=== PATIENT | female | born 1950 | race Caucasian/White ===

== ENCOUNTER 2022-03-01 05:38 | Day surgery (SDC) | payer MEDICARE, OTHER ==
[2022-02-25 15:08] LABS: BASOPHILS # (AUTO) 0.1 X10'3 (0-0.2); EOSINOPHILS # (AUTO) 0.1 X10'3 (0-0.9); EOSINOPHILS % (AUTO) 1.7 % (0-6); LYMPHOCYTES # (AUTO) 2.6 X10'3 (1.1-4.8); LYMPHOCYTES % (AUTO) 37.8 % (21-51); MEAN CORPUSCULAR HEMOGLOBIN 31.2 PG (27.0-31.0); MEAN CORPUSCULAR HGB CONC 34.2 g/dL (33.0-36.5); MEAN CORPUSCULAR VOLUME 91.2 FL (78-98); MEAN PLATELET VOLUME 7.9 FL (7.4-10.4); MONOCYTES # (AUTO) 0.6 X10'3 (0-0.9); MONOCYTES % (AUTO) 8.7 % (2-12); NEUTROPHILS # (AUTO) 3.5 X10'3 (1.8-7.7); NEUTROPHILS % (AUTO) 50.8 % (42-75); PRE OP HEMATOCRIT 33.8 % (35.0-45.0); PRE OP HEMOGLOBIN 11.6 g/dL (12.0-16.0); PRE OP PLATELET COUNT 258 X10'3 (140-440); RED BLOOD COUNT 3.71 X10'6 (4.20-5.60)
[2022-02-25 15:23] LABS: ALBUMIN 4.2 G/DL (3.4-5.0); ALBUMIN/GLOBULIN RATIO 1.2 (1.1-1.5); ALKALINE PHOSPHATASE 73 IU/L (46-116); BLOOD UREA NITROGEN 13 MG/DL (7-18); BUN/CREATININE RATIO 14.9 (6.6-38.0); CALCIUM 9.1 MG/DL (8.5-10.1); CHLORIDE 100 MMOL/L (99-107); CREATININE 0.87 MG/DL (0.40-0.90); PRE OP ALT 27 U/L (30-65); PRE OP ANION GAP 12 (8-16); PRE OP AST 32 U/L (10-37); PRE OP BILIRUB, TOTAL 0.3 MG/DL (0.0-1.0); PRE OP GLUCOSE 112 MG/DL (70-104); PRE OP POTASSIUM 4.2 MMOL/L (3.4-5.1); PRE OP SODIUM 138 MMOL/L (135-145); TOTAL CARBON DIOXIDE 26.4 MMOL/L (24-32); TOTAL PROTEIN 7.8 G/DL (6.4-8.2); eGFR 64 ML/MIN
[~2022-03-01] VITALS: Ht 160 cm; Wt 76.3 kg
[~2022-03-01 05:38] MED LIST: ASPI-611 PO; ATOR10TA10 PO; CALC-855 PO; CITA40TA22 PO; METF-436 PO; TRAZ-251 PO; VIT1CAPS46 PO; clindamycin 600mg/D5W 50ml 50 ML IV ONE; famotidine 20mg tablet PO ONE; ringers solution, lacted 1,000 ML IV SCH
[2022-03-01 05:55] VITALS: BP 167/74
[2022-03-01] MEDS ORDERED: LIDOcaine 1% 30ml preserv. free vial ONE (07:41)
[2022-03-01] MEDS ORDERED: fentaNYL/PF 50MCG/1 ML 2ML syringe ONE (08:22)
[2022-03-01] MEDS ORDERED: MIDAZolam 1 MG/ML 5ML VIAL ONE (08:24)
[2022-03-01] MEDS ORDERED: ketorolac trometh. 30mg/ml inj. ONE (08:24)
[2022-03-01] MEDS ORDERED: BUPIVAcaine/PF 2.5mg/ml (0.25%) 10ml vial ONE (08:42)
[2022-03-01 09:35] VITALS: BP 143/77
--- NOTE | 2022-03-01 09:35 | NUR ---
Received from OR via BED, accompanied by Anesthesiologist and report given by Anesthesiologist. PATIENT WAKING UP, NO S/S OF PAIN, V/S WNL, SCD ON, 20G TO RUE, RIGHT THUMB AND LEFT WRIST DRESSING CDI W/ SLING. ICE AND ELEVATED LUE.
[2022-03-01 09:45] VITALS: BP 141/74
[2022-03-01 09:55] VITALS: BP 138/78
[2022-03-01 10:05] VITALS: BP 141/74
--- NOTE | 2022-03-01 10:05 | NUR ---
PATIENT A&OX4, DENIES PAIN, V/S WNL, SCD OFF, 20G TO RUE D/C, RIGHT THUMB AND LEFT WRIST DRESSING CDI W/ SLING. ICE AND ELEVATED RUE. I HAVE REVIEWED D/C INSTRUCTIONS WITH PATIENT and they have verbalized understanding patient d/c home with all belongings and family gave transport home
== END 2022-03-01 10:05 | disposition home or self-care (01) ==
LOC: PAS 05:38
PROVIDERS: ATTEND Orthopaedic Surgery Hand Surgery
DX: M65.332 Trigger finger, left middle finger (principal); M67.442 Ganglion, left hand; M67.441 Ganglion, right hand; M19.90 Unspecified osteoarthritis, unspecified site; F32.9 Major depressive disorder, single episode, unspecified; Z79.899 Other long term (current) drug therapy; Z98.51 Tubal ligation status; Z90.710 Acquired absence of both cervix and uterus; Z90.49 Acquired absence of other specified parts of digestive tract; Z98.890 Other specified postprocedural states
CPT/HCPCS: 26055; 26160; 36415; 80053; 82948; 85025; 87811; 93005; A6222; J1885; J2250; J3010; J3490; J7030; J7120; Z7506; Z7512; A4215; A4618; A6449; A7000